=== PATIENT | female | born 1985 | race American Indian/Alaskan Native ===

== ENCOUNTER 2019-06-23 20:00 | Outpatient (CLI) | payer MEDICAID ==
[2019-06-23 22:48] LABS: Bacteria,Urine 2+ /HPF (Negative); Bilirubin,Urine NEG (Negative); Blood,Urine NEG (Negative); Color,Urine Yellow (Yellow); Mucus,Urine FEW /HPF; Protein,Urine <15 mg/dL mg/dL (Negative); Urobilinogen,Urine < 2.0 mg/dL (<2.0)
[2019-06-23 23:55] VITALS: BP 98/55
--- NOTE | 2019-06-24 00:29 | Ultrasound Report ---
US OB limited INDICATION / CLINICAL INFORMATION: Pelvic pain. Rule out abruption. COMPARISON: None available. FINDINGS: There is a single intrauterine in a breech presentation. The heart rate is 134 bpm. T he placenta is located anteriorly, is grade 0 and is free of the os. There is no evidence of abruptio n. IMPRESSION: Negative Limited OB pelvic ultrasound. No evidence of abruption. Signer Name: Carter Jones MD Signed: 06/24/2019 12:24 AM Workstation Name: [email or web address]
== END 2019-06-24 00:23 | disposition home or self-care (01) ==
LOC: EDSTATUS 20:30 → TRG 20:35
PROVIDERS: ATTEND Obstetrics & Gynecology
DX: O26.892 Other specified pregnancy related conditions, second trimester (principal); R10.2 Pelvic and perineal pain; R31.9 Hematuria, unspecified; Z86.2 Personal history of diseases of the blood and blood-forming organs and certain disorders involving the immune mechanism; Z3A.20 20 weeks gestation of pregnancy
CPT/HCPCS: 76815; 81001